=== PATIENT | female | born 1965 | race Two or more races ===

== ENCOUNTER 2018-09-14 08:39 | Day surgery (SDC) | payer MEDICAID ==
[2018-09-12 11:19] LABS: Urine Bacteria NONE SEEN /hpf (None Seen); Urine Blood Negative /uL (Negative); Urine Specific Gravity 1.021 (1.001-1.035); Urine WBC 8 /hpf (0 - 5)
[2018-09-12 11:26] LABS: Basophils # (auto) 0 uL; Basophils % (auto) 0.6 % (0.0-2.0); Eosinophils # (auto) 0.4 uL; Eosinophils % (auto) 5.5 % (0.0-7.0); Hematocrit 43.4 % (36.0-46.0); Hemoglobin 14.7 g/dL (12.2-16.2); Lymphocytes # (auto) 1.8 uL; Mean Corpuscular Hemoglobin 28.6 pg (28.0-32.0); Mean Corpuscular Hgb Conc. 33.8 g/dL (32.0-36.0); Mean Corpuscular Volume 84.7 fL (80.0-100.0); Monocytes # (auto) 0.3 uL; Monocytes % (auto) 5.3 % (0.0-12.0); Neutrophils # (auto) 3.9 uL; Neutrophils % (auto) 60.6 % (37.0-80.0); Nucleated Red Blood Cells % 0.2 %; Platelet Count (auto) 194 10^3/uL (140-450); Red Blood Cells 5.13 10^6/uL (4.0-5.20); Red Cell Distribution Width 14.1 % (11.8-14.3); White Blood Cell 6.5 10^3/uL (4.4-10.8)
[2018-09-12 11:34] LABS: Albumin 4.1 g/dL (3.4-5.0); BUN/Creatinine Ratio 22.7; Calcium 9.2 mg/dL (8.5-10.1); Potassium 4.1 mmol/L (3.5-5.1)
[2018-09-12 11:37] LABS: Bilirubin, Total 0.4 mg/dL (0.2-1.0); Total Protein 7.5 g/dL (6.4-8.2)
[2018-09-12 11:40] LABS: INR < 0.93 (0.9-1.15); Partial Thromboplastin Time 26.5 sec (23.64-32.05)
[~2018-09-14] VITALS: Ht 154.9 cm; Wt 97.5 kg
[~2018-09-14 08:39] MED LIST: BENA40TA7 PO; BIOT5TAB3 PO; CHOL1CAP21 PO; COEN100C15 PO; DULO60CA PO; EVEN10003 PO; FLUT1SPR5; FOLI400T34 PO; GABA300C10 PO; HYDR-531 PO; HYDR25TA4 PO; LACTCAP35 OR; MAGN250T22 PO; METF-370 PO; METH500T6 PO; NAP500T PO; OMEG1CAP59 PO; SERT-377 PO
[2018-09-14] MEDS ORDERED: ceFAZolin 1GM/50ML 50 ML IV ONE (08:54)
[2018-09-14] MEDS ORDERED: NEOMYCIN-BACITRACIN-POLYM 15GM TOP OINT TOP ONE (11:57)
[2018-09-14] MEDS ORDERED: fentaNYL CITRATE 100 MCG/2 ML VL ONE (12:40)
[2018-09-14] MEDS ORDERED: fentaNYL CITRATE 100 MCG/2 ML VL IV ONE (13:21)
[2018-09-14] MEDS ORDERED: hydrALAZINE HCL 20 MG/ML VL IV PRN (13:30)
[2018-09-14] MEDS ORDERED: ONDANSETRON HCL 4 MG/2 ML VIAL IV ONE (13:30)
[2018-09-14] MEDS ORDERED: fentaNYL CITRATE 100 MCG/2 ML VL IV PRN (13:30)
[2018-09-14] MEDS ORDERED: ePHEDrine SULFATE 50 MG/ML AMP IV PRN (13:30)
[2018-09-14 14:34] VITALS: BP 144/78
[2018-10-21] MEDS ORDERED: TRAZ100T2 PO (12:23)
== END 2018-09-14 15:00 | disposition home or self-care (01) ==
LOC: SUR 08:39
PROVIDERS: ATTEND Podiatrist Foot & Ankle Surgery
DX: Q66.52 Congenital pes planus, left foot (principal); E66.9 Obesity, unspecified; I10 Essential (primary) hypertension; F32.9 Major depressive disorder, single episode, unspecified; E11.9 Type 2 diabetes mellitus without complications; G62.9 Polyneuropathy, unspecified; M19.90 Unspecified osteoarthritis, unspecified site; M79.7 Fibromyalgia; Z79.84 Long term (current) use of oral hypoglycemic drugs; Z98.890 Other specified postprocedural states; Z68.41 Body mass index [BMI] 40.0-44.9, adult; Z79.899 Other long term (current) drug therapy
CPT/HCPCS: 0335T; 29999; 36415; 73620; 80053; 81001; 85025; 85610; 85730; C1769; C1776; J0690; J2405; J3010

== ENCOUNTER 2018-10-26 06:26 | Day surgery (SDC) | payer MEDICAID ==
[2018-10-21 13:19] LABS: Basophils # (auto) 0 uL; Basophils % (auto) 0.4 % (0.0-2.0); Eosinophils # (auto) 0.1 uL; Eosinophils % (auto) 1.4 % (0.0-7.0); Hematocrit 43.8 % (36.0-46.0); Hemoglobin 14.9 g/dL (12.2-16.2); Lymphocytes # (auto) 1.8 uL; Mean Corpuscular Hemoglobin 28.9 pg (28.0-32.0); Mean Corpuscular Hgb Conc. 34.1 g/dL (32.0-36.0); Mean Corpuscular Volume 84.7 fL (80.0-100.0); Monocytes # (auto) 0.4 uL; Monocytes % (auto) 4.1 % (0.0-12.0); Neutrophils # (auto) 6.6 uL; Neutrophils % (auto) 74.1 % (37.0-80.0); Platelet Count (auto) 204 10^3/uL (140-450); Red Blood Cells 5.18 10^6/uL (4.0-5.20); Red Cell Distribution Width 13.4 % (11.8-14.3); White Blood Cell 8.9 10^3/uL (4.4-10.8)
[2018-10-21 13:54] LABS: INR 0.93 (0.9-1.15); Partial Thromboplastin Time 26.6 sec (23.64-32.05)
[2018-10-21 14:11] LABS: Urine Bacteria FEW /hpf (None Seen); Urine Blood Negative /uL (Negative); Urine Mucus FEW (None Seen); Urine WBC <1 /hpf (0 - 5)
[2018-10-21 15:46] LABS: Potassium 3.5 mmol/L (3.5-5.1)
[2018-10-21 16:02] LABS: Albumin 4.6 g/dL (3.4-5.0); BUN/Creatinine Ratio 22.2; Bilirubin, Total 0.5 mg/dL (0.2-1.0); Calcium 9.7 mg/dL (8.5-10.1); Total Protein 8.1 g/dL (6.4-8.2)
[~2018-10-26] VITALS: Ht 154.9 cm; Wt 92.5 kg
[~2018-10-26 06:26] MED LIST changes: -BIOT5TAB3 PO; -COEN100C15 PO; -EVEN10003 PO; -MAGN250T22 PO; -OMEG1CAP59 PO; +TRAZ100T2 PO
[2018-10-26] MEDS ORDERED: ceFAZolin 1GM/50ML 50 ML IV ONE (07:52)
[2018-10-26] MEDS ORDERED: NEOMYCIN-BACITRACIN-POLYM 15GM TOP OINT TOP ONE (08:08)
[2018-10-26] MEDS ORDERED: ROPIVACAINE 0.5% (5MG/ML) 20ML AMPULE IJ ONE (08:08)
[2018-10-26] MEDS ORDERED: LIDOCAINE 1% (LOCAL ANESTH.) PF 5ml SDV ONE (08:15)
[2018-10-26] MEDS ORDERED: SUCCINYLCHOLINE CHLORIDE 20 MG/ML 10ML VIAL IV ONE (08:15)
[2018-10-26] MEDS ORDERED: MIDAZOLAM HCL 1MG/1ML-2 ML VIAL ONE (08:17)
[2018-10-26] MEDS ORDERED: METOCLOPRAMIDE HCL 5MG/ml INJ 2ml VIAL ONE (08:20)
[2018-10-26] MEDS ORDERED: PROPOFOL 10 MG/ML 20 ML IV ONE (08:21)
[2018-10-26] MEDS ORDERED: ROCURONIUM 10MG/ML 10ML VIAL IV ONE (08:22)
[2018-10-26] MEDS ORDERED: fentaNYL CITRATE 100 MCG/2 ML VL ONE (08:28)
[2018-10-26] MEDS ORDERED: GLYCOPYRROLATE 0.2 MG/ML 1ML VIAL ONE (08:44)
[2018-10-26] MEDS ORDERED: NEOSTIGMINE 1 MG/ML INJ (10mg/10ML VIAL) ONE (08:44)
[2018-10-26] MEDS ORDERED: ACCU-CHEK COMFORT CURVE STRIP VI ONE (08:45)
[2018-10-26] MEDS ORDERED: NALOXONE HCL 0.4 MG/ML VIAL IV PRN (08:45)
[2018-10-26] MEDS ORDERED: ONDANSETRON HCL 4 MG/2 ML VIAL IV PRN (08:45)
[2018-10-26] MEDS ORDERED: KETOROLAC TROMETH 30 MG/ML 1ML VIAL IV ONE (08:45)
[2018-10-26] MEDS: HYDROmorphone HCL 2 MG/ML VL IV PRN ×2 (09:32→09:40)
[2018-10-26 10:00] VITALS: BP 107/66
== END 2018-10-26 10:15 | disposition home or self-care (01) ==
LOC: SUR 06:26
PROVIDERS: ATTEND Podiatrist Foot & Ankle Surgery
DX: Q66.6 Other congenital valgus deformities of feet (principal); K21.9 Gastro-esophageal reflux disease without esophagitis; M19.90 Unspecified osteoarthritis, unspecified site; G25.81 Restless legs syndrome; M79.7 Fibromyalgia; I10 Essential (primary) hypertension; E66.9 Obesity, unspecified; G47.33 Obstructive sleep apnea (adult) (pediatric); F32.9 Major depressive disorder, single episode, unspecified; G62.9 Polyneuropathy, unspecified; G89.29 Other chronic pain; J45.901 Unspecified asthma with (acute) exacerbation; Z68.39 Body mass index [BMI] 39.0-39.9, adult; Z86.73 Personal history of transient ischemic attack (TIA), and cerebral infarction without residual deficits
CPT/HCPCS: 0335T; 29999; 36415; 73620; 80053; 81001; 82962; 85025; 85610; 85730; C1769; C1776; J0330; J0690; J1170; J1885; J2250; J2405; J2704; J2765; J2795; J3010